=== PATIENT | female | born 1990 | race Caucasian/White ===

== ENCOUNTER 2016-12-11 08:18 | Inpatient (IN) | payer OTHER ==
[~2016-12-11] VITALS: Ht 170.2 cm; Wt 90.3 kg
[~2016-12-11 08:18] MED LIST: DOCU-41 PO; Ibuprofen PO; PREN-49 PO
[2016-12-11] MEDS ORDERED: Oxytocin 10 Unit/mL Inj IM PRN ×2 (08:45→16:30)
[2016-12-11] MEDS ORDERED: fentaNYL-PF 50 mCg/mL 2 mL Inj IVPUSH PRN (08:45)
[2016-12-11] MEDS ORDERED: Ondansetron 2 mg/mL 2 mL Inj IVPUSH PRN ×2 (08:45→14:00)
[2016-12-11] MEDS ORDERED: Oxytocin 30 Units/500 mL LR 30 UNITS in IV Premix 1 EACH IV PRN ×2 (08:45→16:30)
[2016-12-11] MEDS ORDERED: Penicillin G K Inj 5,000,000 UNITS in Dextrose 5% Minibag Plus 100 ML IV ONE (08:45)
[2016-12-11] MEDS ORDERED: Carboprost 250 mCg/mL Inj IM PRN ×2 (08:45→16:30)
[2016-12-11] MEDS ORDERED: Sodium Chloride LOK Flush 10 mL Syringe IVFLUSH PRN (08:45)
[2016-12-11] MEDS ORDERED: Methylergonovine 0.2 mg/mL Inj IM PRN ×2 (08:45→16:30)
[2016-12-11] MEDS ORDERED: Lactated Ringer's 1,000 ML IV PRN (08:45)
[2016-12-11] MEDS ORDERED: Hemorrhage Kit, Post Partum XX ONE ×2 (08:45→16:30)
[2016-12-11 09:55] LABS: Mean Corpuscular Hemoglobin 31.7 pg (27.0-35.0)
[2016-12-11] MEDS ORDERED: fentaNYL 2 mCg/mL-Bupivicaine 0.125% 100 mL Premix EPIDURAL ONE (13:52)
[2016-12-11] MEDS ORDERED: Lactated Ringer's 500 ML IV ONE (13:56)
[2016-12-11] MEDS ORDERED: Lactated Ringer's 1,000 ML IV SCH ×2 (13:56→16:30)
--- NOTE | 2016-12-11 13:58 | PCM.HPANE ---
Patient Data Surgeon Admitting Provider:Tripp Monroy MD Attending Provider:Tripp Monroy MD Primary Care Physician:Tripp Monroy MD Other Provider:Mukesh Whalen Anesthesia Reason for Visit Early Labor EARLY LABOR Ht/WT & BMI Body Mass Index Allergies Coded Allergies: No Known Allergies (Unverified Allergy, Unknown, 01/03/14) Diabetes History Hx Diabetes?: No Medications Hypertension Medication: No Home Meds Incl Beta Ashlie: No Active Scripts Docusate Sodium (Colace)100 Mg [id number] Mg PO BID PRN For Constipation #60 CAPSULE Prov:Mariella Pollard MD 01/04/14 [Ibuprofen] (Motrin)800 MG TABLET No Conflict [id number] Mg PO Q6 PRN For Pain # 30 TABLET Prov:Mariella Pollard MD 01/04/14 Reported Medications Pnv with Ca,No.71/Iron/FA (Prenaplus Tablet)1 Each Tablet1 Each PO 01/03/14 History History of ENT Problems?: No Hx of Heart Problems?: No Hx of Respiratory Problem?: No Hx Neurologic Problems?: No Hx of GI Problems?: No Hx of Problems?: No HX of Peritoneal Dialysis: No Female Hx: Positive for:: Currently Hx Musculoskeletal Problems?: Yes Musculoskeletal History: Positive for:: Back Injury Hx of Psycho/Social Problems?: No Hx Surgeries?: No Hx Any Other Health Problems?: No Hx Diabetes: No Hx Alcohol Use: Yes Smoking Status: Never Smoker Stop/Bang Treated for Sleep Apnea?: No Do You Have a CPAP Machine?: No ADRIAN Risk Assessment: Low Risk, <3 Yes Risk Assessment Category Category 1A: Patient has history of documented sleep apnea, and HAS NOT received any narcotic, sedative or anesthesia administration during this stay. Category 1B: Patient has history of documented sleep apnea, and HAS received any narcotic , sedative or anesthesia administration during this stay Category 2: Patient has SUSPECTED Obstructive Sleep Apnea, and HAS received any narcotic , sedative or anesthesia administration during this stay. Category 3: Patient has SUSPECTED Obstructive Sleep Apnea and HAS NOT received narcotic, sedative or anesthesia administration during this stay. Category 4: Outpatient in Procedural Areas with known sleep apnea or who screen positive for High Risk via the STOP/BANG questionnaire. Exam Exam General Appearance: Oriented X3 HEENT/AIRWAY: MP 2 Lungs: Normal Air Movement Heart: Regular Rate/Rhythm Meds/Labs/Diagnostics Admission Meds Current Medications Penicillin G Potassium/ Dextrose/Water (Pfizerpen Inj/ D5W Minibag Plus) 100 ml @ 240 mls/hr ONCE ONCE IV Last administered on 12/11/16t 10:00; Start at 08:45; Stop 12/11/16 at 09:09; Status DC Labs Test 12/11/16 09:47 White Blood Count 13.8th/mm3 (3.8-10.1) Red Blood Count 4.29mil/mm3 (3.90-5.20) Hemoglobin 13.6g/dL (12.0-15.6) Hematocrit 38.6% (35.0-46.0) Mean Corpuscular Volume 90.0fL (81-100) Mean Corpuscular Hemoglobin 31.7pg (27.0-35.0) Mean Corpuscular Hemoglobin Concent 35.2% (32.0-37.0) Red Cell Distribution Width 12.4% (12.3-15.4) Platelet Count 168bil/L (150-400) Plan Impression Patient chart reviewed, patient interviewed and anesthestic plan with risks, benefits, and alternatives discussed, and informed consent obtained. ASA Physical Status: ASA1 Normal Healthy Anesthetic Plan: Epidural Bene/Risks/Altern/Consents: Yes HP Complete Prior to Induction: Yes Main Mackey MD Dec 11, 2016 13:58
[2016-12-11] MEDS ORDERED: EPHEDrine Sulfate 50 mg/mL Inj IVPUSH PRN (14:00)
[2016-12-11] MEDS ORDERED: fentaNYL 2 mCg/mL-Bupiv 0.125% 100 ML EPIDURAL SCH (14:00)
[2016-12-11] MEDS ORDERED: Phenylephrine/NS-PF 100 mCg/mL 5 mL Syringe IVPUSH PRN (14:00)
[2016-12-11] MEDS ORDERED: Penicillin G K Inj 3,000,000 UNITS in IV Premix 1 EACH IV SCH (14:00)
[2016-12-11] MEDS ORDERED: Atropine 1 mg/10 mL (Code) Syringe IVPUSH PRN (14:00)
[2016-12-11] MEDS ORDERED: LANOlin HPA 7 Gm Ointment TOPICAL PRN (16:30)
[2016-12-11] MEDS ORDERED: HYDROcodone-APAP 5-325 mg Tablet PO PRN (16:30)
[2016-12-11] MEDS ORDERED: Benzocaine (Dermoplast) 20% 60 Gm Spray TOPICAL PRN (16:30)
[2016-12-11] MEDS ORDERED: Witch Hazel-Glycerin Pads TOPICAL PRN (16:30)
--- NOTE | 2016-12-11 19:34 | HP ---
[address] [address] HISTORY AND PHYSICAL PATIENT: LEO TERRY : 1990 MR#: [id number] ADMIT: 12/11/2016 JOB ID: [id number] DATE: 12/11/2016 CHIEF COMPLAINT: Rupture of membranes and increased contractions at term. HISTORY OF PRESENT ILLNESS: A 26-year-old, 2, para 1, with an EDC of December 05, 2016 by a 14-week ultrasound done June 06 and an EDC of 420 based on LMP of March 10, 2016 presents at 40 and 6/7 weeks gestation with rupture of membranes of clear to blood-tinged fluid this morning followed by increasing contractions. Admission exam found her to be 3 cm. She then went to 6-7 cm and received an epidural and is becoming more uncomfortable when I arrive. LABS: Blood type A negative. Rubella immune. Serology nonreactive. Hepatitis B surface antigen and HIV test negative. An A1c at the onset of was 5.6. She had a negative antibody screen at the onset of , a weakly positive anti-D antibody screen at 30 weeks and a glucose tolerance test at that time fasting of 8, a 1 hour at 157 and a 2 hour of 139. A Pap was normal in April 2016. Hematocrit was 34.3 at 30 weeks. She declined risk testing. She is gonorrhea and chlamydia culture negative screened April of last year. A urine culture showed no growth in August of this year, and she is GBS positive screened November 03, 2016. ISSUES: 1. Breast implants. 2. Needs Pap due to insufficient endocervical cells on initial Pap. 3. Rh negative. 4. 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 5. GBS positive. 6. Anxiety. 7. Declined flu vaccine. 8. Prior low-lying placenta which resolved by a July 20 ultrasound. ALLERGIES: None known. CURRENT MEDICATIONS: vitamins 1 tablet daily. HEALTH CARE MAINTENANCE: She had a Tdap in October of this year. She declined a flu vaccine last year. SOCIAL HISTORY: She is a mother of one. Nonsmoker. Drinks no alcohol. Has previously denied recreational drug use. She is in a long-term relationship with a male partner. FAMILY HISTORY: Patient is adopted, so she is unsure of her family history. PAST SURGICAL HISTORY: [place] tooth extraction. PAST GYNECOLOGIC HISTORY: 2, para 1. In 2013, she delivered at 40 and 2/7 weeks an 8 pound male by vaginal delivery uncomplicated with epidural anesthesia. REVIEW OF SYSTEMS: She is having regular contractions. She feels movement. She is somewhat tired. PHYSICAL EXAMINATION: Last blood pressure at 1548 was 110/90. Before that was 128/75, pulse in the 80s to 110s, last temperature just before 3 p.m. was 36.3. She is a moderately uncomfortable, gravid woman with regular contractions every 2-3 minutes that she can feel but reports are improved since receiving her epidural. By Fran's done in the office, is in the vertex position in the high 7 to low 8 pound range. heart tracing shows a baseline in the 130s with good variability and several accelerations. Tracing does not burr picker at a few points. There are small occasional decelerations with rapid recovery. Tocometer shows regular contractions every 2 minutes. Cervical examination shows her to be completely dilated at 0 station, 100% effaced, slight bloody show noted on exam. No meconium-stained fluid. ASSESSMENT: 1. Gravid at 40 and 6/7 weeks. 2. Active labor, now completely dilated and managing well with an epidural. 3. Group B strep positive, already treated with penicillin x2 doses. 4. Rh negative. PLAN: The patient wishes to continue expectant management. We are waiting for a family friend to arrive. Otherwise anticipate pushing shortly. QUENTIND
--- NOTE | 2016-12-11 19:36 | PROG NOTE ---
[address] [address] PROGRESS NOTE PATIENT: LEO TERRY : 1990 MR#: [id number] ADMIT: 12/11/2016 JOB ID: [id number] DATE: 12/11/2016 DELIVERY NOTE: Delivery position: JOSSELINE. Apgars: 9 and 9. Delivery weight: 8 pounds 12 ounces Umbilical cord: Three-vessel cord, normal length and appearance, no nuchal cord. Placenta: Side central cord insertion, normal appearance. No evidence of retained fragments. EBL: 150 cc. Lacerations: Right labial. See addendum after this note for repair. Anesthesia: Epidural, later 1% for labial repair (see addendum). Complications: None. The patient was found to have an increasing urge to push. She pushed effectively for only a few contractions, bringing the head down. Head delivered. No nuchal cord was identified. Shoulders delivered slowly but without an identified shoulder dystocia. Infant cried almost immediately after delivery and was handed up to Nursing and patient for additional stimulation. Cord was clamped and cut after a 3 minute delay. Three-vessel cord identified. Cord blood collected and sent. Placenta delivered spontaneously with gentle traction on the cord. Initially I felt the right labial laceration was too shallow to require repair. Due to bleeding later a repair was completed and dictated in an addendum. After delivery, fundus is firm. Her bleeding is slowing and IV oxytocin is being instituted. Sponge and needle counts were correct. [facility]
--- NOTE | 2016-12-11 20:39 | PROG NOTE ---
[address] [address] PROGRESS NOTE PATIENT: LEO TERRY : 1990 MR#: [id number] ADMIT: 12/11/2016 JOB ID: [id number] DATE: I was contacted by Nursing because patient had a right labial abrasion, noted at delivery, that continued to bleed and appeared to have a small hematoma. EXAM: Patient is smiling and in no acute distress. Her right mid labia does indeed have a linear laceration with a moderate hematoma and no active bleeding. We discussed options and she was agreeable with repair. ASSESSMENT: Right labial laceration, noted at delivery but initially not appearing to require repair. I do now think it would benefit from closure. It has only been a few hours since delivery. PLAN: After reviewing options, area was cleaned with a small amount of Betadine. Anesthesia obtained with 1% lidocaine, 10 cc total. Using several subcutaneous 2-0 Vicryl sutures the wound edges were brought closer together and then the skin closed with a running 2-0 Vicryl. Patient tolerated procedure well. Bleeding was minimal. MTDD
[2016-12-12 06:40] LABS: Mean Corpuscular Hemoglobin 30.8 pg (27.0-35.0); Mean Corpuscular Volume 91.2 fL (81-100)
--- NOTE | 2016-12-12 17:56 | PCM.DIOB ---
Obstetrical Disch Instruction Date of Service: Dec 12, 2016 Dates of Hospitalization Date of Hospital Admission Dec 11, 2016 at 08:44 Providers Admitting Physician: Tripp Monroy MD Primary Care Physician: Tripp Monroy MD Attending Physician: Tripp Monroy MD Discharge Diagnosis Problems: (1) Vaginal delivery Status: Acute ICD Code: O80 (2) Obstetric labial laceration, delivered, current hospitalization Status: Acute ICD Code: O70.0 Diet Discharge Diet: No restrictions Activity Discharge Activity-General: Pelvic Rest for 6 weeks Dressing and Incisional Care Hygiene: May shower Follow Up Plan Follow-up Provider (F9): Tripp Monroy MD Follow-up appointment: Weeks (6) Tripp Monroy MD Dec 12, 2016 17:56
[2016-12-12] MEDS ORDERED: IBUP-1827 PO (17:58)
[2016-12-12] MEDS ORDERED: DOCU-41 PO (17:58)
[2016-12-12 18:25] VITALS: BP 123/59; PULSE 71; RESP 16
--- NOTE | 2016-12-12 18:43 | DIS ---
[address] [address] DISCHARGE SUMMARY PATIENT: LEO TERRY : 1990 MR#: [id number] ADMIT: 12/11/2016 JOB ID: [id number] DIS: 12/12/2016 DISCHARGE DIAGNOSES: 1. Spontaneous vaginal delivery to a viable 8 pound 12 ounce female. 2. Right labial laceration with small hematoma. 3. Rh negative. 4. Cystic fibrosis carrier. 5. Group B strep positive, treated. 6. Anxiety. 7. History of bilateral breast implants. ALLERGIES: None known. DISCHARGE MEDICATIONS: 1. vitamins 1 tablet daily. 2. Ibuprofen 600 mg q.6 h. p.r.n. pain. 3. Docusate sodium 100 mg p.o. b.i.d. p.r.n. constipation. DIET: Ad aquilino ACTIVITY: Ad aquilino except I recommended pelvic rest for six weeks due to laceration repair. FOLLOWUP: with Dr. Monroy in six weeks. Call sooner for increased bleeding, fever, excessive breast tenderness, problems with the laceration repair, etc. HOSPITAL COURSE: The patient is a 26-year-old, now 2, para 2 who presented at 40 and 6/7 weeks in active labor. She went on to have an uncomplicated delivery of an 8 pound 12 ounce female in JOSSELINE position. She sustained a right labial laceration that initially did not appear to need repair, however, with continued bleeding and swelling repair was completed a few hours later without complication. , she is caring for her infant well, her bleeding is slowing, and her hematocrit dropped to 35.2 from an admit value of 38.6. On exam today her fundus is firm at at the umbilicus. She has voided and stooled without issue. She will follow up in six weeks, sooner if problems. GRETTA
== END 2016-12-12 19:57 | disposition home or self-care (01) | DRG 775 ==
LOC: FBCO 08:18 → FBC 08:44
PROVIDERS: ADMIT Family Medicine; ATTEND Family Medicine
PROC: 10E0XZZ Delivery of Products of Conception, External Approach (ICD-10-PCS; principal; 2016-12-11)
PROC: 0HQ9XZZ Repair Perineum Skin, External Approach (ICD-10-PCS; 2016-12-11)
DX: O70.0 First degree perineal laceration during delivery (principal); O99.824 Streptococcus B carrier state complicating childbirth; Z3A.40 40 weeks gestation of pregnancy; Z37.0 Single live birth; Z14.1 Cystic fibrosis carrier